=== PATIENT | male | born 1985 | race Caucasian/White ===

== ENCOUNTER 2023-10-24 06:51 | Day surgery (SDC) | payer OTHER, SELFPAY ==
[2023-10-24] VITALS (28 sets, daily range): BP systolic 136–171; BP diastolic 70–108; PULSE 82–109; RESP 16–20; TEMP 36.4–37.3; O2SAT 94–100; BMI 38.2; BMI 35.5
--- NOTE | ~2023-10-24 | CT_ITS ---
EXAMINATION: CT CERVICAL SPINE without contrast CLINICAL INFORMATION: Reason for Exam trauma COMPARISON: No prior CT available, TECHNIQUE: Computed axial sagittal and coronal images acquired using department's standard protocol. This CT examination was performed using dose optimization techniques as appropriate, variously including the following: *Automated exposure control *Adjustment of mA and/or kV according to patient size (this includes techniques or standardized protocols for targeted exams where dose is matched to indication/reason for exam; i.e. extremities or head) *Use of iterative reconstruction technique CONTRAST: None DLP: 3891 mGy-cm FINDINGS: SKULL BASE: Visualized structures at skull base are normal, Included facial sinuses are clear, CERVICAL VERTEBRAE: Hardware anterior fusion of C4-C5 and C5-C6 are intact, the vertebra are completely fused. All cervical vertebrae identified maintaining a proper height and alignments. DISCS: Narrowing of disc spaces and developed small osteophyte from the edges of endplates suggest underlying degenerative disc disease. Mild facet joints arthropathy multiple levels. Central canal and neural foramen are patent at all levels. Included lungs apices are clear. Posterior spinous processes are intact. PARAVERTEBRAL SOFT TISSUE: Paravertebral soft tissues unremarkable. CT/CT cervical spine wo IV con IMPRESSION: 1. No CT evidence of cervical spine fracture. 2. Hardware anterior fusion of C4-C5 and C5-C6 are intact. 3. Narrowing of disc spaces and developed small osteophyte from the edges of endplates suggest underlying degenerative disc disease. 4. Mild facet joints arthropathy multiple levels.
--- NOTE | ~2023-10-24 | CT_ITS ---
EXAMINATION: CT abdomen pelvis w IV con CLINICAL INFORMATION: Reason for Exam trauma COMPARISON: No prior CT available for comparison. TECHNIQUE: Multidetector volumetric imaging was performed from the superior aspect of the liver through the pubic symphysis 85 mL of Omnipaque 350 injected Sagittal and coronal reformatted images were obtained on the technologist's workstation. This CT examination was performed using dose optimization techniques as appropriate, variously including the following: *Automated exposure control *Adjustment of mA and/or kV according to patient size (this includes techniques or standardized protocols for targeted exams where dose is matched to indication/reason for exam; i.e. extremities or head) *Use of iterative reconstruction technique DLP: 3891 mGy-cm FINDINGS: LOWER THORAX: Included lung bases are clear. HEPATOBILIARY: There is low-attenuation hypodense area in the left lobe of the liver anterior subcapsular region, liver segment 2/3, measure approximately 5.5 x 2.7 cm not well characterized on this single phase CT scan, possible liver contusion, versus liver lesion. No associated subcapsular bleed. This could be further characterize with follow-up ultrasound or MRI in one month. GALLBLADDER: Gallbladder unremarkable. SPLEEN: Spleen is normal in size. PANCREAS: No focal mass or ductal dilatation. STOMACH AND GASTROINTESTINAL TRACT: Stomach is distended with food contents. There is no bowel distention or thickening. Normal appendix. Excess amount of stool in the colon possible constipation ADRENALS: No adrenal nodules. KIDNEYS/URETERS: No hydronephrosis, stones or solid mass lesions. URINARY BLADDER: Partially decompressed. PELVIC VISCERA: Unremarkable PERITONEUM: No free air or fluid. LYMPH NODES: No lymphadenopathy. VASCULAR:Abdominal aorta normal in size, no aneurysm found. BONES, ABDOMINAL WALL AND SOFT TISSUES: Age-appropriate changes of the spine and skeletal system, no destructive osteolytic or osteosclerotic bone lesion found CT/CT abdomen pelvis w IV con IMPRESSION: 1. Low-attenuation hypodense area in the left lobe of the liver anterior subcapsular region, liver segment 2/3, measure up to 5.5 cm, not well characterized on this single phase CT scan, possible liver contusion versus liver lesion versus hemangioma. No associated subcapsular bleed. This could be further characterize with follow-up ultrasound. Dynamically enhanced MRI also could be utilized for further characterization if clinically indicated. 2. Excess amount of stool in the colon possible constipation. (Referring physician staff is being called, by physician staff assistance, to be alerted of the above critical findings and recommendations.) A J 10/24/2023 10:01 AM
--- NOTE | ~2023-10-24 | XR_ITS ---
EXAMINATION: XR KNEE, RIGHT CLINICAL INFORMATION: Injury COMPARISON: None available. TECHNIQUE: Four views of the right knee. FINDINGS: Mildly displaced vertical fracture through the patella. Distal femur, proximal tibia and fibula are intact.. Alignment is anatomic. Joint spaces are maintained. There is gas within the joint superior to the patella. XR/XR knee RT 3V IMPRESSION: 1. Mildly displaced vertical fracture through the patella. 2. There is gas within the joint superior to the patella.
--- NOTE | ~2023-10-24 | US_ITS ---
EXAMINATION: US limited abdomen liver CLINICAL INFORMATION: Trauma, follow-up to CT scan COMPARISON: None available at the time of this dictation. TECHNIQUE: High-frequency curvilinear transducer ultrasound utilized, area of interest scanned, liver FINDINGS: Exam extremely limited due to patient's immobility, pain, unable to hold breath, area defined by CT scan could not be well seen by ultrasound, the liver is heterogeneous throughout, heterogeneously echogenic mass in the left lobe 4 x 4.7 cm could be a hemangioma. This may or may not correlate with the area seen on CT scan as it looks situated slightly more deep. US/US abdomen limited IMPRESSION: 1. Exam extremely limited due to patient's immobility, pain, unable to hold breath. 2. Heterogeneous echogenic mass in the left lobe of the liver 4 x 4.7 cm could be a hemangioma, this may or may not correlate with the area seen on CT scan as it looks situated slightly more deep down the one described by CT scan. 3. No ultrasound evidence of ascites or subcapsular hematoma. 4. Recommend correlation with follow-up contrast enhanced dynamic cross-sectional imaging MRI follow-up outpatient to rule out liver mass pathologic lesion.
--- NOTE | ~2023-10-24 | CT_ITS ---
EXAMINATION: CT chest w IV con. CLINICAL INFORMATION: Reason for Exam trauma COMPARISON: No prior CT available for comparison. TECHNIQUE: Multidetector volumetric CT imaging of the chest was done. Axial MIP volume rendering provided. Sagittal and coronal reformatted images were obtained. This CT examination was performed using dose optimization techniques as appropriate, variously including the following: *Automated exposure control *Adjustment of mA and/or kV according to patient size (this includes techniques or standardized protocols for targeted exams where dose is matched to indication/reason for exam; i.e. extremities or head) *Use of iterative reconstruction technique CONTRAST: 85 mL of Omnipaque 350 injected DLP: 3891 mGy-cm FINDINGS: GOVERNMENT PROGRAM MANAGER: LINES/TUBES: Cracking And Fanning Machine Operator reviewed, no lines. LUNGS: Lung parenchyma: Mild peripheral interstitial changes at lower lobes likely weight dependent changes. Lungs are clear. Mild peripheral paraseptal emphysema. Lung nodules/masses: 6 mm peripheral pleural-based nodule right upper lobe image 186 series 3 1. No lung mass or suspicious spiculated nodules, there are few scattered tiny nonspecific lung nodular densities measuring up to 4 mm or less AIRWAYS: Trachea and bronchi are normal. PLEURA: No pleural effusion or pneumothorax. MEDIASTINUM AND OCTAVIANO: No mediastinal, hilar or axillary lymphadenopathy. No mediastinal mass. VESSELS: HEART AND PERICARDIUM: Thoracic aorta is normal in size. Heart is normal in size. No pericardial effusion. No coronary calcification. Pulmonary arteries are normal in size. LOWER NECK, AXILLA: The visualized thyroid gland is unremarkable. No axillary mass or adenopathy. VISUALIZED ABDOMEN: Unremarkable CHEST WALL AND BONES: No chest wall mass. The visualized bony thorax is within normal limits. CT/CT chest w IV con IMPRESSION: 1. No CT evidence of solid organ injury. 2. No lung mass or suspicious spiculated nodules, there are few scattered tiny nonspecific lung nodular densities measuring up to 6 mm or less. 3. Mild peripheral interstitial changes at lower lobes likely dependent changes. 4. Mild peripheral paraseptal emphysema. Per the 2017 revised Fleischner Society guidelines, recommend CT follow-up at 2-pu-27-months. In high-risk patients, subsequent CT follow-up at 18-24 months is recommended. In low-risk patients, subsequent CT follow-up at 18-24 months is optional.
--- NOTE | ~2023-10-24 | FL_ITS ---
EXAMINATION: XR FLUOROSCOPY WITH IMAGES CLINICAL INFORMATION: ORIF right patella. COMPARISON: Radiographs dated 10/24/2023. TECHNIQUE: Fluoroscopy Supervised By: Dr. Usman Eduardo. Fluoroscopy Time: 0.1. Cumulative Dose: 0.566 mGy. DAP: 0.97452 Gycm2. Images: 3. FINDINGS: The submitted images show ORIF of the vertical fracture of the right patella with 3 transversely oriented fixator screws. There is good bony alignment. FL/FL guidance in OR IMPRESSION: Intraoperative fluoroscopic guidance provided during ORIF of a vertical right patellar fracture. Please see the patient's Operative Report for full procedural details.
--- NOTE | ~2023-10-24 | CT_ITS ---
CT head/brain wo IV con CLINICAL INFORMATION: Trauma COMPARISON: No prior CT scan available for comparison. TECHNIQUE: Department standard protocol. This CT examination was performed using dose optimization techniques as appropriate, variously including the following: *Automated exposure control *Adjustment of mA and/or kV according to patient size (this includes techniques or standardized protocols for targeted exams where dose is matched to indication/reason for exam; i.e. extremities or head) *Use of iterative reconstruction technique DLP: 3891 mGy-cm FINDINGS: CEREBRAL HEMISPHERES: There is no evidence of intra-axial or extra-axial mass, hemorrhage or acute infarct. BRAIN PARENCHYMA: Normal mar-white matter differentiation. SUBDURAL SPACE: No bleed. BASAL GANGLIA AND PINEAL GLAND: Unremarkable VENTRICLES: Symmetric and normal in size. CEREBELLUM AND BRAINSTEM: No space-occupying mass, hemorrhage or acute infarct. CEREBELLOPONTINE ANGLES: No lesion found. ORBITS: No intraorbital mass. VESSELS: Unremarkable SKULL BASE: Unremarkable INCLUDED SINUSES AT SKULL BASE: Mucosal thickening in ethmoidal air cells and sphenoid air cells. SKULL AND SKIN: No fracture or bone lesion found. CT/CT head/brain wo IV con IMPRESSION: 1. No CT evidence of intracranial space-occupying mass, bleed or infarct. 2. Mucosal thickening in ethmoidal air cells and sphenoid air cells.
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
[2023-10-24] MEDS: cefTRIAXone sodium 2 GM in 0.9 % Sodium Chloride 50 ML IV (07:18)
[2023-10-24] MEDS: Diphth,Pertus(ACell),Tet Adult 0.5 ML SYRINGE IM (07:19)
[2023-10-24 07:26] LABS: MANUAL DIFF FLAG NO
--- NOTE | 2023-10-24 07:26 | PC.NURSE ---
labs obtained/sent to lab. medication administered per provider order.
[2023-10-24 07:33] LABS: Basophils Absolute Auto 0.1 X10*3/uL (0.0-0.2); Basophils Percent Auto 0.3 % (0-2); Eosinophils Absolute Auto 0.5 X10*3/uL (0.0-0.4); Eosinophils Percent Auto 2.9 % (0-4); Hematocrit 42.7 % (42.0-52.0); Hemoglobin 13.8 g/dl (14.0-18.0); Imm Gran Abs Auto 0.11 X10*3/uL (0.00-0.03); Imm Gran Pct Auto 0.7 % (0.0-0.4); Lymphocytes Absolute Auto 2.2 X10*3/uL (1.2-4.9); Lymphocytes Percent Auto 13.7 % (20-40); Mean Corpuscular HGB Conc 32.3 g/dl (31.0-36.0); Mean Corpuscular Hemoglobin 29.2 pg (27.0-33.0); Mean Corpuscular Volume 90.5 fL (80.0-98.0); Mean Platelet Volume 11.1 fL (9.4-12.4); Monocytes Absolute Auto 0.6 X10*3/uL (0.1-1.2); Monocytes Percent Auto 3.7 % (2-11); Neutrophils Absolute Auto 12.4 x10*3/uL (2.0-8.3); Neutrophils Percent Auto 78.7 % (45-73); Platelet Count 311 X10*3/uL (160-400); Red Blood Count 4.72 X10*6/uL (4.60-5.80); Red Cell Distribution Width 14.1 % (11.0-16.0); White Blood Count 15.8 X10*3/uL (4.8-10.8)
[2023-10-24 07:42] LABS: Alanine Aminotransferase 86 U/L (0-40); Albumin Level 4.1 g/dL (3.5-5.0); Alkaline Phosphatase 86 U/L (39-117); Anion Gap 11 (12-20); Aspartate Amino Transferase 89 U/L (5-37); Bilirubin Total 0.4 mg/dL (0.0-1.0); Blood Urea Nitrogen 18 mg/dL (9-16); Calcium 9.4 mg/dL (8.4-10.2); Carbon Dioxide 27 mmol/L (22-29); Chloride 106 mmol/L (96-108); Estimated Glomerular Filt Rate > 60; Ethanol < 10 mg/dL; Glucose Random 114 mg/dL (60-115); Potassium 3.5 mmol/L (3.3-5.1); Sodium 140 mmol/L (135-145); Total Protein 6.8 g/dL (6.5-8.0)
[2023-10-24] MEDS: iohexoL 350 MG/ML 100 ML INFUS..BTL IV (08:21)
[2023-10-24] MEDS: Morphine Sulfate 4 MG/ML CARTRIDGE IVPUSH (08:34)
[2023-10-24] MEDS: Lidocaine HCl 1 % MPF 5 ML VIAL INFILTRATI (08:34)
--- NOTE | 2023-10-24 08:37 | PC.NURSE ---
pt returned from CT at this time - c/o 07/13 pain. provider aware. medication administered per provider order. lidocaine placed bedside for provider to use when needed.
--- NOTE | 2023-10-24 09:02 | PC.NURSE ---
wound cleaned/debrided by dr. truong in the ED. provider is consulting w/ OR d/t depth of wound at this time. wound remains open to RA. pt repositioned to comfort. pt resting comfortably in bed in no apparent distress. respirations remain even and unlabored. call morales placed within reach.
[2023-10-24] MEDS: 0.9 % Sodium Chloride 1,000 ML 999 ML IVCONT (09:10)
--- NOTE | 2023-10-24 09:15 | PC.NURSE ---
now bedside at this time. dr. truong bedside speaking w/ pt - pt and aware of plan of care at this time.
--- NOTE | 2023-10-24 09:57 | PC.NURSE ---
pt cleared from CT - c-collar removed at this time. pt changed into hospital attire. pt and pt's now speaking w/ PA orthopedist at this time/aware of plan of care.
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
--- NOTE | 2023-10-24 10:17 | PHA.MEDREC ---
Pharmacy Consult ? Medication Reconciliation Pharmacy has completed the medication reconciliation. Spoke to patient and at bedside, states he only takes paroxetine regularly and gabapentin as needed, all other medications from recent claim history were from rehab and he does not use them. Patient and also stated he gets methadone 75mg from a clinic in [place] that he got this morning, reached out to nurse Castro for verification form.
--- NOTE | 2023-10-24 10:23 | HO.ANESPROP2 ---
HPI - Anesthesia Eval Consult details Narrative: Right patella fracture PMFSH Active Problems Active Problems: All Active Problems (Updated 10/24/23 @ 10:06 by Leda Jaquez PA-C) Open fracture of patella (Acute) Past Medical History Medical History (Updated 10/24/23 @ 10:24 by Javier Chaudhry MD) Hypertension Family History Family history of problems with anesthesia: No Surgical History Surgical History (Updated 10/24/23 @ 10:06 by Leda Jaquez PA-C) H/O neck surgery History of Problems with Anesthesia: No Social History Social History (Updated 10/24/23 @ 10:07 by Leda Jaquez PA-C) Smoked in Last 30 Days: No Use of substances other than those prescribed or required for medical reasons: No Advance Directives: No Advance Directives Information Provided: No Current occupation: [employer] Allergies Allergy/AdvReac Type Severity Reaction Status Date / Time No Known Allergies Allergy Verified 10/24/23 07:02 Active Medications: Current Medications Cefazolin Sodium/Dextrose (Ancef) 2 gm in 50 mls @ 100 mls/hr IV PREOP ONE Stop: 10/24/23 10:39 Home Medications Medication Instructions Recorded Confirmed Last Taken Type gabapentin 300 mg capsule 300 mg PO TID PRN anxiety 10/24/23 10/24/23 10/22/23 History methadone 10 mg/mL oral 75 mg PO DAILY 10/24/23 10/24/23 History concentrate (Methadone Intensol) paroxetine HCl 20 mg tablet 20 mg PO DAILY 10/24/23 10/24/23 10/22/23 History Exam Height,Weight and Vital Signs: Height 5 ft 6 in Weight 107.5 kg Last Vital Signs Temp 98.2 F 10/24/23 09:09 Pulse 89 10/24/23 09:09 Resp 18 10/24/23 09:09 BP 156/94 H 10/24/23 09:09 Pulse Ox 98 10/24/23 09:09 O2 Del Method Room Air 10/24/23 09:09 Pertinent Lab Results Pertinent Lab Results: Laboratory Tests 10/24/23 07:23 WBC 15.8 H RBC 4.72 Hgb 13.8 L Hct 42.7 MCV 90.5 MCH 29.2 MCHC 32.3 RDW 14.1 Plt Count 311 MPV 11.1 Immature Gran % (Auto) 0.7 H Neut % (Auto) 78.7 H Lymph % (Auto) 13.7 L [place] % (Auto) 3.7 Eos % (Auto) 2.9 Baso % (Auto) 0.3 Lymph # (Auto) 2.2 [place] # (Auto) 0.6 Eos # (Auto) 0.5 H Baso # (Auto) 0.1 Abs Immat Gran (auto) 0.11 H Absolute Neuts (auto) 12.4 H Absolute Nucleated RBC 0.000 Nucleated RBC % (auto) 0.0 Sodium 140 Potassium 3.5 Chloride 106 Carbon Dioxide 27 Anion Gap 11 L BUN 18 H Creatinine 0.82 Estim Creat Clear Calc 139.0 Estimated GFR > 60 Random Glucose 114 Calcium 9.4 Total Bilirubin 0.4 AST 89 H ALT 86 H Alkaline Phosphatase 86 Total Protein 6.8 Albumin 4.1 Ethyl Alcohol < 10 Airway Mallampati Class: II TM Dist: >3cm Neck ROM: Full Loose/Missing/Broken Teeth: No Heart: RRR Lungs: CTA Assessment and Plan Assessment Anesthesia Assessment: Anesthesia Plan Discussed and Chart Reviewed Final Anesthetic Review Family History of Problems with Anesthesia: No History of Problems with Anesthesia: No NPO: Yes ASA Class: III and Emergency Final Preanesthetic Review: No Changes in Pt Med Stat, Meds/Allgs Chart Reviewed, Consent Obtained/Reviewed and Anes Risks/Benef Reviewed Patient Risk: Intermediate Procedure Risk: Intermediate Anesthetic Plan Anesthetic Plan: GA Disposition: Standard PACU
--- NOTE | 2023-10-24 10:53 | PC.NURSE ---
report given to RN from OR.
--- NOTE | 2023-10-24 11:03 | PC.NURSE ---
pt transferring to OR at this time.
--- NOTE | 2023-10-24 12:47 | PM.OP ---
Brief Operative Note Date of Service: 10/24/23 Pre-op diagnosis: Open patella fracture Post-op diagnosis: same Procedure: Open reduction internal fixation right patella Irrigation and debridement open wound right knee Implants: [place] 3.5 cancellous screws x 3 Surgeon: Usman Eduardo MD Was an Information Systems Consultant used for this Procedure?: No Estimated blood loss (mL): 100 IV fluids (mL): 1,000 Pathology: none sent Condition: stable Disposition: PACU
[2023-10-24] MEDS: fentaNYL citrate/PF 100 MCG/2 ML VIAL 50 MCG IVPUSH ×2 (13:24→13:29)
[2023-10-24] MEDS: HYDROmorphone HCl 0.5 MG/0.5 ML SYRINGE IVPUSH ×4 (13:34→14:12)
--- NOTE | 2023-10-24 15:18 | PC.NURSE ---
Patient transferred to unit: assumed care at 1515
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
[2023-10-24] MEDS: Gabapentin 300 MG CAPSULE PO ×2 (15:32→23:01)
[2023-10-24] MEDS: oxyCODONE HCl Immed Release 5 MG TABLET 10 MG PO ×2 (15:35→22:14)
[2023-10-24] MEDS: Lactated Ringers 1,000 ML 100 ML IVCONT (15:45)
[2023-10-24] MEDS: HYDROmorphone HCl 0.5 MG/0.5 ML SYRINGE 0.25 MG IVPUSH ×2 (18:35→23:01)
[2023-10-24] MEDS: ceFAZolin Sodium 3 GM in 0.9 % Sodium Chloride 100 ML IV (19:48)
[2023-10-24] MEDS: oxyCODONE HCl ER 10 MG TAB.ER.12H PO (22:14)
[2023-10-24] MEDS: Docusate Sodium 100 MG CAPSULE PO (22:14)
[2023-10-25] MEDS: HYDROmorphone HCl 0.5 MG/0.5 ML SYRINGE IVPUSH ×6 (00:40→23:36)
--- NOTE | 2023-10-25 00:43 | PM.EVENT ---
Event Note Date of Service: 10/25/23 Event Note: Was called by the nurse as patient stated that his pain is not under control. States he was a heroin addict and was recently in rehab. Will try p.o. morphine, patient agrees. Consulting Addiction Team. Does not seem to be in withdrawal actively at the time of assessment Time Spent With Patient Time: Total time managing care of this patient today ____ minutes.
[2023-10-25] MEDS: Acetaminophen 1,000 MG/100 ML PIGGYBACK 400 MG IV ×4 (00:45→17:50)
[2023-10-25] MEDS: Lactated Ringers 1,000 ML 100 ML IVCONT ×3 (02:16→15:39)
[2023-10-25 03:31] VITALS: BP 141/72; PULSE 89; RESP 16; TEMP 36.2; O2SAT 95
[2023-10-25] MEDS: Morphine Sulfate Immed Release 15 MG TABLET PO (03:39)
[2023-10-25] MEDS: ceFAZolin Sodium 3 GM in 0.9 % Sodium Chloride 100 ML IV ×3 (04:02→19:21)
[2023-10-25 05:39] LABS: MANUAL DIFF FLAG NO
[2023-10-25 05:45] LABS: Basophils Percent Auto 0.2 % (0-2); Eosinophils Absolute Auto 0.2 X10*3/uL (0.0-0.4); Hematocrit 40.2 % (42.0-52.0); Imm Gran Abs Auto 0.04 X10*3/uL (0.00-0.03); Imm Gran Pct Auto 0.3 % (0.0-0.4); Lymphocytes Absolute Auto 2.3 X10*3/uL (1.2-4.9); Lymphocytes Percent Auto 18.4 % (20-40); Mean Corpuscular HGB Conc 32.3 g/dl (31.0-36.0); Mean Corpuscular Hemoglobin 28.2 pg (27.0-33.0); Mean Corpuscular Volume 87.2 fL (80.0-98.0); Monocytes Absolute Auto 0.8 X10*3/uL (0.1-1.2); Monocytes Percent Auto 6.9 % (2-11); Neutrophils Absolute Auto 8.8 x10*3/uL (2.0-8.3); Neutrophils Percent Auto 72.2 % (45-73); Platelet Count 305 X10*3/uL (160-400); Red Blood Count 4.61 X10*6/uL (4.60-5.80); Red Cell Distribution Width 14.6 % (11.0-16.0); White Blood Count 12.2 X10*3/uL (4.8-10.8)
[2023-10-25 06:02] LABS: Anion Gap 11 (12-20); Blood Urea Nitrogen 7 mg/dL (9-16); Carbon Dioxide 26 mmol/L (22-29); Chloride 108 mmol/L (96-108); Creatinine Clr Calc Pharmacy 142.4; Estimated Glomerular Filt Rate > 60; Glucose Fasting 116 mg/dL (60-99); Potassium 3.4 mmol/L (3.3-5.1); Sodium 142 mmol/L (135-145)
[2023-10-25 07:17] VITALS: BP 155/71; PULSE 88; RESP 16; TEMP 36.9; O2SAT 95
--- NOTE | 2023-10-25 07:19 | PC.NURSE ---
1209 am pt in lots of pain medicated with all schedule and prn medications not enough. pt states he is using lots of drugs and his pain is out of control . md notified increase of medication schedule and other prn meds are added . hospitalist was consulted for pain management ordered, after pt received all the meds his pain was better he was able to sleep
[2023-10-25] MEDS: PARoxetine HCL 20 MG TABLET PO (08:20)
[2023-10-25] MEDS: oxyCODONE HCl ER 10 MG TAB.ER.12H PO ×2 (08:20→19:17)
[2023-10-25] MEDS: 0.9 % Sodium Chloride Flush 3 ML SYRINGE IVFLUSH ×2 (08:20→23:36)
[2023-10-25] MEDS: Docusate Sodium 100 MG CAPSULE PO ×2 (08:20→19:17)
--- NOTE | 2023-10-25 08:21 | HE.PHANOTE ---
METHADONE CONFIRMATION FORM PATIENT TAKES 75MG FROM [facility]. LAST DOSE 10/24/2023
[2023-10-25] MEDS: methADONE HCl 20 MG/2 ML ORAL.CONC 75 MG PO (08:59)
[2023-10-25 09:35] VITALS: BP 155/71; PULSE 88; O2SAT 95
[2023-10-25] MEDS: Nicotine Polacrilex 2 MG GUM 4 MG BUCCAL (11:47)
--- NOTE | 2023-10-25 11:50 | MHC.CM.PN ---
pt lives with ,physical therapy receommending home with services referral to [facility] pt has own ride home
--- NOTE | 2023-10-25 12:21 | PM.PNORT ---
Subjective Subjective Date of Service: 10/25/23 Interval history: POD 1 s/p ORIF right patella with I&D overnight pain was difficult to manage denies sob, cp, or palpitations Physical Exam Vital Signs: Vital Signs: Last Vital Signs Temp 98.5 F 10/25/23 07:17 Pulse 88 10/25/23 09:35 Resp 16 10/25/23 07:17 BP 155/71 H 10/25/23 09:35 Pulse Ox 95 10/25/23 09:35 O2 Del Method Room Air 10/25/23 07:17 O2 Flow Rate 2 10/24/23 15:17 BMI result Body Mass Index 35.5 Const: General: cooperative, healthy appearing and no acute distress Resp: Effort & Inspection: normal respiratory effort and able to speak in complete sentences Cardio: Rate: regular rate Peripheral pulses: Peripheral pulses 2+ throughout GI: Palpation (GI): Soft to palpation Skin: General skin exam: no rashes or lesions noted Extrem: Other: Right knee bandage c/d/i. Calf supple non tender, nVI. Procedures Date of Service Date of Service: 10/25/23 Progress Note: A&P Assessment and plan (1) Open fracture of patella: Status: Acute Assessment and Plan: Pain mgmnt Compression boots for dvt ppx PT-PWB RLE, NO ROM-brace locked IV abx for 48 hrs due to open fx Dispo pending Needs for continued in patient stay iv abx and pain control Time Spent With Patient Time: Total time managing care of this patient today ____ minutes. Quality Stroke Does the patient have a stroke diagnosis?: No VTE Prior VTE?: No VTE Risk Level:: Surgical - moderate VTE Device Contraindication: N/A - Device Ordered VTE Drug Contraindication: Treatment Not Indicated (pre op)
[2023-10-25] MEDS: oxyCODONE HCl Immed Release 5 MG TABLET 10 MG PO ×3 (12:54→21:16)
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
[2023-10-25 16:00] VITALS: BP 127/70; PULSE 83; RESP 18; TEMP 36.7; O2SAT 97
--- NOTE | 2023-10-25 17:00 | HO.POSTANES ---
Post Anesthesia Evaluation Post Anesthesia Evaluation Date of Service: 10/25/23 Vital Signs: Vital Signs Temp Pulse Resp BP Pulse Ox O2 Del Method 10/25/23 16:00 98.0 F 83 18 127/70 97 Room Air 10/25/23 09:35 88 155/71 H 95 10/25/23 07:17 98.5 F 88 16 155/71 H 95 Room Air Anesthesia: General Mental Status: Awake Pain Control: Satisfactory (difficulty controlling pain) Nausea/Vomiting: None Hydration: Adequate Anesthesia-Related Issues: No Anes. Related Issues
[2023-10-25] MEDS: Gabapentin 300 MG CAPSULE PO (19:17)
[2023-10-25 20:00] VITALS: BP 130/71; PULSE 65; RESP 18; TEMP 36.2; O2SAT 98
[2023-10-26] MEDS: oxyCODONE HCl Immed Release 5 MG TABLET 10 MG PO (01:38)
[2023-10-26] MEDS: Lactated Ringers 1,000 ML 100 ML IVCONT (01:39)
[2023-10-26] MEDS: ceFAZolin Sodium 3 GM in 0.9 % Sodium Chloride 100 ML IV (01:39)
[2023-10-26] MEDS: HYDROmorphone HCl 0.5 MG/0.5 ML SYRINGE IVPUSH ×2 (02:25→07:37)
[2023-10-26 04:00] VITALS: BP 162/80; PULSE 89; RESP 16; TEMP 36.6; O2SAT 97
[2023-10-26 07:07] VITALS: BP 139/64; PULSE 91; RESP 16; TEMP 37; O2SAT 97
[2023-10-26] MEDS: 0.9 % Sodium Chloride Flush 3 ML SYRINGE IVFLUSH (07:41)
--- NOTE | 2023-10-26 08:00 | P.DS_ITS ---
DS: Providers Provider Date of Service: 10/26/23 Primary care physician: Dioni Velasco MD Consults: 10/25/23 00:17 Consult to Hospitalist Routine Comment: Consulting Provider: Hospitalist Reason For Exam: H/o substance use, on methadone. ?withdrawal 10/25/23 00:42 Addiction Medicine Routine Consulting Provider: Addiction Covering Reason for consultation: heroin use disorder DS: Diagnosis Discharge Diagnosis (1) Open fracture of patella: Status: Acute DS: Summary Hospital Course Hospital Course: The patient underwent a successful Irrigation and debridement right knee with ORIF patella on 10/24/23, was transferred to PACU and then to the floor to recover. During their stay, their vitals were stable, afebrile at 98.6. Labs were unremarkable, H/H 13.0/40.2 . During his admission he received Kefzol 2gm q8 hrs x48 hrs due to open fracture. POD 1 he received Physical Therapy services twice a day. Physical therapy should include PWB with brace locked in extension. NO ROM. gait training. Prior to discharge, his dressing was changed, incision clean dry and intact, new dressing applied. The dressing should remain intact and dry at all times. Any concerns with the dressing, please contact orthopedic office. No showering. The plan is to be discharged home. Time Attestation Discharge coordination time: Less than 30 minutes Quality: Safe Use of Opioids Does Pt have an Active Cancer Diagnosis on the Problem List?: No Quality: Stroke Does the patient have a stroke diagnosis?: No Physical Exam Vital Signs: Vital Signs: Last Vital Signs Temp 98.6 F 10/26/23 07:07 Pulse 91 10/26/23 07:07 Resp 16 10/26/23 07:07 BP 139/64 10/26/23 07:07 Pulse Ox 97 10/26/23 07:07 O2 Del Method Room Air 10/26/23 07:07 O2 Flow Rate 2 10/24/23 15:17 BMI result Body Mass Index 35.5 Discharge Plan Discharge Patient Disposition: Home, Self-Care Referrals: Leda Jaquez PA-C [Physician [employer]] - 2 Weeks Discharge Medications: New docusate sodium 100 mg Capsule 100 mg PO BID 14 Days Qty: 28 0RF oxycodone 10 mg tablet 10 mg PO Q4H PRN (Reason: Pain, Moderate(Pain Scale 4-6)) 7 Days Qty: 42 0RF Rx Instructions: Partial Fill upon patient request. acetaminophen 325 mg Tablet 650 mg PO Q6H PRN (Reason: Pain, Mild (Pain Scale 1-3)) 30 Days Qty: 240 0RF Continued paroxetine HCl 20 mg tablet 20 mg PO DAILY gabapentin 300 mg capsule 300 mg PO TID PRN (Reason: anxiety) methadone [Methadone Intensol] 10 mg/mL Concentrate 75 mg PO DAILY Discharge Orders: Discharge Order (Routine); Ordered 10/26/23 Ordered By: Leda Jaquez Diet: Regular diet Activity on Discharge: Walk with crutches Activity Restrictions/Additional Instructions: * PWB with brace locked in extension at all times * DO NOT BEND THE KNEE * Keep dressing clean, dry and intact * Perform Ankle pumps for leg circulation 4x a day * Elevate leg above the level of the heart on 3 pillows * Any questions or concerns please call the office [facility] * Follow up with Orthopedics in 2 weeks.
[2023-10-26] MEDS: methADONE HCl 20 MG/2 ML ORAL.CONC 75 MG PO (08:09)
[2023-10-26] MEDS: oxyCODONE HCl ER 10 MG TAB.ER.12H PO (08:10)
[2023-10-26] MEDS: PARoxetine HCL 20 MG TABLET PO (08:12)
--- NOTE | 2023-10-26 09:54 | MHC.CM.PN ---
EMR reviewed. Patient is medically cleared for dc home. PT initially recommending home services. However, 13 referrals to VNA's were sent with no accepting agencies. Per ortho, patient does not need home PT. Exercise instructions on dc summary and patient will f/u with ortho outpatient. If outpatient PT is ordered patient's and mother can transport. Patient gets methadone at [facility]. Last dose letter provided. Patient is agreeable to plan. is at bedside to transport home.
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
--- NOTE | 2023-10-28 11:41 | W.PM.OPN ---
Operative Note Operative Note Date of Service: 10/24/23 Narrative: Date of Service: 10/24/23 Pre-op diagnosis: Open patella fracture Post-op diagnosis: same Procedure: Open reduction internal fixation right patella Irrigation and debridement open wound right knee Implants: Del 3.5 cancellous screws x 3 Surgeon: Usman Eduardo MD Was an [employer] Machine Feeder used for this Procedure?: No Estimated blood loss (mL): 100 IV fluids (mL): 1,000 Pathology: none sent Condition: stable Disposition: PACU Patient was brought to the operating room and placed in the beach chair position on the surgical table. The site was prepped and draped in standard sterile fashion and a time out was called to identify proper site, proper procedure and IV antibiotics per weight were administered.I began by making irrigating the open wound. It was clean and without obvious contamination. I explored the wound and found the vertical patella fracture was complete and the joint was violated. I therefore opened the traumatic incision further to better visualize the fracture and the joint. I irrigated copiously the joint with 9 L saline. I then reduced the fracture with a sharp tenaculum and , using standard AO technique, I placed 3 3.5 mm screws from medial to lateral to reduce the fracture and restore the articular anatomy. Biplanar fluoroscopy was used to confirm appropriate hardware location, fracture reduction and screw length. Once I was satisfied with these parameters I copiously irrigated and closed with absorbable suture and simon. Patient was placed in sterile dressing and extubated brought to recovery room stable condition there were no known complications.
== END 2023-10-26 11:12 | disposition home or self-care (01) ==
LOC: HO.ED 09:56 → HO.SSS 11:04 → HO.S3 11:32
PROVIDERS: Orthopaedic Surgery; Emergency Provider Emergency Medicine; PCP Family Medicine; Visit Provider Physician Assistant
PROC: (CPT 27524; principal; 2023-10-24 10:00)
DX: S82.02 Longitudinal fracture of patella (principal); S00.81XA Abrasion of other part of head, initial encounter; V47.5XXA Car driver injured in collision with fixed or stationary object in traffic accident, initial encounter; I10 Essential (primary) hypertension; M25.861 Other specified joint disorders, right knee; F11.20 Opioid dependence, uncomplicated; F17.210 Nicotine dependence, cigarettes, uncomplicated; Z23 Encounter for immunization; Z79.899 Other long term (current) drug therapy; Y93.89 Activity, other specified; Y92.414 Local residential or business street as the place of occurrence of the external cause; Y99.9 Unspecified external cause status
CPT/HCPCS: 27524; 36415; 70450; 71260; 72125; 73562; 74177; 76705; 80048; 80053; 80307; 85025; 90471; 90715; 92950; 96361; 96365; 96375; 97162; 99024; 99284; 99285; C1713; J0131; J0665; J0690; J0696; J0736; J1170; J2270; J2405; J2704; J2795; J3010; J3370; J7120; Q9967

== ENCOUNTER → 2023-10-24 07:15 | Outpatient (BNV) | payer OTHER, SELFPAY | PROVIDERS: Emergency Provider Emergency Medicine; PCP Family Medicine; Visit Provider Physician Assistant | DX: S82.02 Longitudinal fracture of patella (principal) | CPT/HCPCS: 27524; 99024; 99223 ==

== ENCOUNTER → 2023-10-24 10:58 | Outpatient (BNV) | payer OTHER, SELFPAY | PROVIDERS: Emergency Provider Emergency Medicine; PCP Family Medicine; Visit Provider Physician Assistant | DX: F11.20 Opioid dependence, uncomplicated (principal); I10 Essential (primary) hypertension; S82.02 Longitudinal fracture of patella | CPT/HCPCS: 99222 ==

== ENCOUNTER → 2023-10-24 10:58 | Outpatient (BNV) | payer OTHER, SELFPAY | PROVIDERS: Emergency Provider Emergency Medicine; PCP Family Medicine; Visit Provider Surgery | DX: R93.5 Abnormal findings on diagnostic imaging of other abdominal regions, including retroperitoneum (principal); V89.2XXA Person injured in unspecified motor-vehicle accident, traffic, initial encounter | CPT/HCPCS: 99222 ==

== ENCOUNTER → 2023-10-24 10:58 | Outpatient (BNV) | payer OTHER, SELFPAY | PROVIDERS: Emergency Provider Emergency Medicine; PCP Family Medicine; Visit Provider Nurse Practitioner Psychiatric/Mental Health | DX: F11.90 Opioid use, unspecified, uncomplicated (principal) | CPT/HCPCS: 99221 ==

== ENCOUNTER 2023-11-11 09:49 | Outpatient (REF) | payer OTHER, SELFPAY ==
--- NOTE | ~2023-11-11 | XR_ITS ---
EXAMINATION: XR KNEE, RIGHT CLINICAL INFORMATION: Pain. COMPARISON: Prior examinations, most recently 11/01/2023. TECHNIQUE: AP and lateral views of the right knee. FINDINGS: Bony mineralization is normal. There is stable alignment of a vertical fracture of the medial aspect of the right patella, with 3 intact fixator screws. No hardware failure or loosening is seen. There is no significant new callus formation. There is a small joint effusion. The lateral, medial and patellofemoral joint space compartments are well-maintained. There is no foreign body. XR/XR knee RT 2V IMPRESSION: There is stable alignment of a vertical fracture of the patella status-post ORIF. No hardware failure or loosening is seen.
== END 2023-11-11 09:50 | disposition home or self-care (01) ==
LOC: HO.HOSX 09:49
PROVIDERS: Visit Provider Physician Assistant
DX: S82.02 Longitudinal fracture of patella (principal)
CPT/HCPCS: 73560

== ENCOUNTER 2023-11-11 13:01 | Outpatient (AMB) | payer OTHER, SELFPAY ==
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
== END 2023-11-11 14:36 | disposition home or self-care (01) ==
PROVIDERS: PCP Family Medicine; Visit Provider Physician Assistant
DX: S82.02 Longitudinal fracture of patella (principal)
CPT/HCPCS: 99024

== ENCOUNTER 2023-12-09 15:15 | Outpatient (REF) | payer OTHER, SELFPAY | END 2023-12-09 15:16 | disposition home or self-care (01) | LOC: HO.HOSX 15:15 | PROVIDERS: Visit Provider Physician Assistant | DX: Z13.89 Encounter for screening for other disorder (principal) ==